=== PATIENT | male | born 1970 | race Caucasian/White ===

== ENCOUNTER → 2017-09-25 | Outpatient (CLI) | payer OTHER | LOC: MHCPAIN 09:27 | DX: G89.29 Other chronic pain (principal); M54.12 Radiculopathy, cervical region; M47.812 Spondylosis without myelopathy or radiculopathy, cervical region; M96.1 Postlaminectomy syndrome, not elsewhere classified; M47.814 Spondylosis without myelopathy or radiculopathy, thoracic region | CPT/HCPCS: G0463 ==

== ENCOUNTER → 2017-10-24 | Outpatient (CLI) | payer BC | LOC: COL.RAD 11:11 | DX: M25.512 Pain in left shoulder (principal) ==

== ENCOUNTER → 2017-10-24 | Outpatient (CLI) | payer OTHER, BC | LOC: MHCPAIN | DX: M50.20 Other cervical disc displacement, unspecified cervical region (principal); M96.1 Postlaminectomy syndrome, not elsewhere classified ==

== ENCOUNTER → 2017-10-30 | Outpatient (CLI) | payer OTHER, BC | LOC: MHCPAIN 09:20 | DX: G89.29 Other chronic pain (principal); M50.90 Cervical disc disorder, unspecified, unspecified cervical region; M47.814 Spondylosis without myelopathy or radiculopathy, thoracic region; M96.1 Postlaminectomy syndrome, not elsewhere classified | CPT/HCPCS: G0463 ==

== ENCOUNTER → 2018-01-01 | Outpatient (CLI) | payer OTHER | LOC: MHCPAIN 12:44 | DX: G89.29 Other chronic pain (principal); M50.90 Cervical disc disorder, unspecified, unspecified cervical region; M54.12 Radiculopathy, cervical region; M25.512 Pain in left shoulder | CPT/HCPCS: G0463 ==

== ENCOUNTER → 2018-01-02 | Outpatient (CLI) | payer OTHER | LOC: MHCPAIN 08:31 | DX: M19.011 Primary osteoarthritis, right shoulder (principal) | CPT/HCPCS: J1040; Q9967 ==

== ENCOUNTER → 2018-04-09 | Outpatient (CLI) | payer OTHER | LOC: MHCPAIN 12:46 | DX: G89.29 Other chronic pain (principal); M50.90 Cervical disc disorder, unspecified, unspecified cervical region; M54.12 Radiculopathy, cervical region; M25.512 Pain in left shoulder | CPT/HCPCS: G0463 ==

== ENCOUNTER → 2018-10-22 | Outpatient (CLI) | payer BC, OTHER | LOC: MHCPAIN 08:55 | DX: G89.29 Other chronic pain (principal); M54.12 Radiculopathy, cervical region; M47.812 Spondylosis without myelopathy or radiculopathy, cervical region; M96.1 Postlaminectomy syndrome, not elsewhere classified | CPT/HCPCS: G0463 ==

== ENCOUNTER → 2018-11-13 | Outpatient (CLI) | payer BC | LOC: COL.RAD 13:28 | DX: M25.512 Pain in left shoulder (principal) | CPT/HCPCS: J3301; Q9967 ==

== ENCOUNTER → 2019-01-13 | Outpatient (CLI) | payer BC | LOC: MHCPAIN 13:03 | DX: G89.29 Other chronic pain (principal); M47.817 Spondylosis without myelopathy or radiculopathy, lumbosacral region; M53.3 Sacrococcygeal disorders, not elsewhere classified | CPT/HCPCS: G0463 ==

== ENCOUNTER → 2019-06-17 | Outpatient (CLI) | payer BC | LOC: MHCPAIN 12:50 | DX: G89.29 Other chronic pain (principal); M47.812 Spondylosis without myelopathy or radiculopathy, cervical region | CPT/HCPCS: G0463 ==

== ENCOUNTER → 2019-09-15 | Outpatient (CLI) | payer BC | LOC: MHCPAIN 12:24 | DX: M47.812 Spondylosis without myelopathy or radiculopathy, cervical region (principal) | CPT/HCPCS: G0463 ==

== ENCOUNTER → 2020-03-02 | Outpatient (CLI) | payer BC | LOC: MHCPAIN 14:01 | DX: M47.812 Spondylosis without myelopathy or radiculopathy, cervical region (principal); M54.2 Cervicalgia; M54.6 Pain in thoracic spine; G89.29 Other chronic pain | CPT/HCPCS: G0463 ==

== ENCOUNTER → 2020-06-01 | Outpatient (CLI) | payer BC | LOC: MHCPAIN 10:27 | DX: M47.812 Spondylosis without myelopathy or radiculopathy, cervical region (principal); M54.2 Cervicalgia; M54.6 Pain in thoracic spine; G89.29 Other chronic pain | CPT/HCPCS: G0463 ==

== ENCOUNTER → 2020-08-15 | Outpatient (CLI) | payer BC | LOC: MHCPAIN 10:31 | DX: M47.812 Spondylosis without myelopathy or radiculopathy, cervical region (principal); M54.2 Cervicalgia; M54.6 Pain in thoracic spine; M96.1 Postlaminectomy syndrome, not elsewhere classified; G89.29 Other chronic pain | CPT/HCPCS: G0463 ==

== ENCOUNTER → 2020-11-21 | Outpatient (CLI) | payer BC | LOC: MHCPAIN 08:59 | DX: M47.812 Spondylosis without myelopathy or radiculopathy, cervical region (principal); M96.1 Postlaminectomy syndrome, not elsewhere classified; M54.2 Cervicalgia; G89.29 Other chronic pain | CPT/HCPCS: G0463 ==

== ENCOUNTER → 2021-02-21 | Outpatient (CLI) | payer BC | LOC: MHCPAIN 12:47 | DX: M47.812 Spondylosis without myelopathy or radiculopathy, cervical region (principal); M96.1 Postlaminectomy syndrome, not elsewhere classified; M54.2 Cervicalgia; M54.6 Pain in thoracic spine | CPT/HCPCS: G0463 ==